=== PATIENT | male | born 1970 | race African-American/Black ===

== ENCOUNTER 2023-11-21 09:44 | Emergency (ER) | payer SELFPAY ==
[~2023-11-21] VITALS: Ht 185.4 cm; Wt 81.6 kg
[2023-11-21 09:45] VITALS: TEMP 97.9
[2023-11-21 10:19] LABS: BASOPHILS # (AUTO) 0.03 K/uL (0.00-0.20); BASOPHILS % (AUTO) 0.2 % (0.0-5.0); EOSINOPHILS # (AUTO) 0.06 K/uL (0.00-0.70); EOSINOPHILS % (AUTO) 0.5 % (0.0-8.0); HEMATOCRIT 45.5 % (42-54); IMMATURE GRANULOCYTE ABSOLUTE 0.03 K/uL (0-1); LYMPHOCYTES # (AUTO) 1.3 K/uL (1.0-4.8); MEAN CORPUSCULAR HEMOGLOBIN 34.3 pg (27.0-33.0); MEAN CORPUSCULAR HGB CONC 34.7 g/dL (32.0-36.0); MEAN CORPUSCULAR VOLUME 98.9 fL (79-99); MONOCYTES # (AUTO) 0.6 K/uL (0.1-1.0); MONOCYTES % (AUTO) 4.7 % (3.0-13.0); NEUTROPHILS # (AUTO) 10.7 K/uL (1.8-7.7); NEUTROPHILS % (AUTO) 84.4 % (40.0-77.0); PLATELET COUNT (AUTO) 226 K/uL (130-400); RED CELL DISTRIBUTION WIDTH 12.1 % (11.0-15.5); WHITE BLOOD COUNT (AUTO) 12.7 K/uL (4.8-10.8)
[2023-11-21 10:26] LABS: CREATININE 1.3 mg/dL (0.5-1.3); POTASSIUM 3.8 mmol/L (3.5-5.1)
[2023-11-21 10:58] LABS: APPEARANCE,URINE CLEAR (CLEAR); BILIRUBIN,URINE NEGATIVE (NEGATIVE); COLOR,URINE LIGHT-YELLOW (YELLOW); GLUCOSE, URINE (UA) NEGATIVE (NEGATIVE); KETONES,URINE NEGATIVE (NEGATIVE); LEUKOCYTE ESTERASE ,URINE NEGATIVE Leu/uL (NEGATIVE); NITRATE,URINE NEGATIVE (NEGATIVE); OCCULT BLOOD,URINE NEGATIVE (NEGATIVE); PROTEIN,URINE NEGATIVE (NEGATIVE); UROBILINOGEN,URINE 0.2 mg/dL (0.2-1.0)
[2023-11-21 11:04] LABS: ADD UA MICROSCOPIC NO
[2023-11-21 11:34] LABS: ALBUMIN 4.1 g/dL (3.5-5.0); BILIRUBIN,DIRECT 0.1 mg/dL (0.0-0.3); BILIRUBIN,TOTAL 0.3 mg/dL (0.2-1.0); TOTAL PROTEIN, SERUM 7.6 g/dL (6.0-8.3)
[2023-11-21] MEDS ORDERED: IOHEXOL-350 75 ML VIAL IV ONE (11:59)
[2023-11-21] MEDS: 0.9%NACL 1000ML 1,000 ML IV ONE (12:34)
[2023-11-21] MEDS: ketOROlac 15MG/ML VIAL (15MG/ML) IV ONE (12:35)
[2023-11-21] MEDS: ondanSETRON 4MG INJ IVP ONE ×2 (12:35→14:58)
[2023-11-21] MEDS ORDERED: ACET-66 PO (13:57)
[2023-11-21] MEDS ORDERED: ONDA-243 PO (13:57)
[2023-11-21] MEDS: acetaMINOPHEN 500 MG TABLET PO ONE (14:58)
[2023-11-21 15:15] VITALS: BP 114/67; PULSE 62; RESP 20; O2SAT 99
== END 2023-11-21 15:15 | disposition home or self-care (01) ==
LOC: EDH 09:44
DX: K52.9 Noninfective gastroenteritis and colitis, unspecified (principal); K40.90 Unilateral inguinal hernia, without obstruction or gangrene, not specified as recurrent; R42 Dizziness and giddiness; R11.2 Nausea with vomiting, unspecified; F17.200 Nicotine dependence, unspecified, uncomplicated; Z88.0 Allergy status to penicillin; Z88.8 Allergy status to other drugs, medicaments and biological substances; Z79.899 Other long term (current) drug therapy; Z98.890 Other specified postprocedural states
CPT/HCPCS: 99285; 74178; 96374; 71045; 96361; 96375; 80076; 84484; 80048; 85025; 81003; 36415; 96376; 93005; J7030; J2405 ×2; J1885; Q9967